=== PATIENT | female | born 1985 | race Caucasian/White ===

== ENCOUNTER 2016-07-26 19:05 | Inpatient (IN) | payer OTHER ==
[~2016-07-26] VITALS: Ht 172.7 cm; Wt 69.9 kg
[2016-07-26] MEDS ORDERED: MOM 30ML SUSPENSION UDC PO PRN (20:30)
[2016-07-26] MEDS ORDERED: MAALOX 30 ML SUSP *UDC PO PRN (20:30)
[2016-07-26] MEDS: chlordiazePOXIDE 25 MG CAP PO SCH (21:00)
[2016-07-26] MEDS ORDERED: ZOLP5TAB PO (21:03)
[2016-07-26] MEDS ORDERED: AMPH30CA PO (21:03)
[2016-07-26] MEDS ORDERED: GRAL600T PO (21:03)
[2016-07-26] MEDS ORDERED: HYDR25T PO (21:03)
--- NOTE | 2016-07-26 21:12 | EDDOCDS ---
Nurse's Notes [facility] Name: Jojo Smith Age: 30 yrs Sex: Female : 1985 Arrival Date: 07/26/2016 Time: 19:05 Bed OBSERVATION Private MD: Diagnosis: Major depressive disorder, recurrent;Suicide attempt;Opioid abuse;Alcohol abuse Presentation: 07/26 19:14 Presenting complaint: Received report at 1330 from [facility] stating that pt has history of js13 heroin, ETOH and cocaine abuse. Pt presented with SI and lacerations to left FA, one of which required 5 sutures to close. Pt has had multiple suicide attempts, multiple detox and rehab stays and has been unsuccessful. Mental Health Triage Level: Level 2: The patient displays active suicidal ideations. Adult Sepsis Screening: The patient does not have new or worsening altered mentation. Suicide/Homicide risk assessment- The patient admits to and/or has been reported to be having suicidal ideations. The patient reports that he/she has a recent or current history of substance abuse. 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 Transition of care: patient was received from [facility]. 19:14 Acuity: NORA Level 3 13 19:14 Method Of Arrival: Ambulance js13 Triage Assessment: 19:20 General: Appears in no apparent distress. HIV screening NA for this visit Offered js13 previously. Neurological: Level of Consciousness is awake, alert, Oriented to person, place, time. Cardiovascular: Rhythm is regular. Respiratory: Airway is patent Respiratory effort is even, unlabored, Breath sounds are clear bilaterally. Derm: Dressed wounds to left FA. [address] to horizontal asymptomatic laceration. Multiple other superficial lacs noted. Multiple scars noted to marya arms, many consistent with IV drug scars. 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 hydroxyzine HCl 25 mg Oral tab 1 tab 3 times per day - PMHx: polysubstance abuse; - PSHx: none; - Family history: Not pertinent. - : The pt / caregiver states he / she is not on anticoagulants. Home medication list is obtained from the patient, Transfer paperwork . - Exposure Risk Screening:: None identified. Screenin:00 Screening information is obtained from the patient. Fall risk: No risks identified. rw1 Assistance ADL's: requires no assistance with activities of daily living. Abuse/DV Screen: The patient / caregiver reports he/she is: not in a situation that causes fear, pain or injury. Nutritional screening: No deficits noted. Advance Directives: Currently, there is no health care proxy. home support is inadequate. Assessment: 19:20 General: see triage assessment. rw1 20:59 General: Appears distressed, uncomfortable, Behavior is anxious, appropriate for age, rw1 cooperative, pleasant, restless. Pain: Location: back, right leg and left leg Pain currently is 9 out of 10 on a pain scale. Neurological: Level of Consciousness is awake, alert, obeys commands, Oriented to person, place, time. Respiratory: Airway is patent Respiratory effort is even, unlabored. Mental Health Eval: 20:24 Status: The patient is not a kosher dietary service supervisor or dependent. [facility]: The patient is not an established patient of [facility]. Referral Information: Evaluation referral is generated by [facility] . The patient was referred for evaluation because PT attempted suicide . Subjective: The patients chief complaint is PT states that she has long hx of alcohol and heroin abuse but that she was utilizing Suboxin for a few years. She had paying out of pocket as the provider in her area would not accept her insurance so PT's states she has been hussing to pay for the script. About 4 months ago she was unable to get the money for a script and she turned back to heroin and alcohol. PT was in [facility] detox 2x in 3 weeks and they arranged for her to go to [facility] rehab and discharged her. On the way to rehab PT was drinking so the rehab turned her away which was upsetting to PT so she overdosed. Originally PT admitted she OD and cut her left forearm to kill herself but now is saying she just wanted to sleep and is a cutter. When asked about her pattern for cutting she states this is the first time except for when she was in [facility] and cut her arm to kill herself. PT tearful throughout interview and is accepting of admission. . Delusions are denied. Patient's mood is anxious, depressed, Hallucinations are denied. Mental Health history: alcohol abuse, anxiety, Bipolar Disorder, depression, abusing crack cocaine. heroin. self -mutilation, sleep disturbance, suicide attempt by OD Mental Health Admissions: Destiny Bryan but PT states she cannot remember when Current Outpatient Mental Health Services: None. Current living environment is The patient currently lives with his / her mother, and mother's . Patient presents to Emergency Department with the following symptoms within the past 2 weeks: alcohol abuse, anxiety, depressed mood, drug abuse, excessive guilt, feelings of helplessness/hopelessness, poor concentration, Patient has mutilated themselves by cutting their left arm sleep disturbance - erratic suicidal ideation with attempt/gesture by pills. Substance abuse: Patient uses daily. Patient uses heroin daily. Patient uses tobacco Frequency daily. Mental status exam: Patients appearance is appropriate, Patient's behavior is cooperative, Speech is normal. Affect is appropriate. Mood is anxious. depressed. Hallucinations are denied. Appetite is erratic Memory is good. Energy level is normal. Content of thought is depressive. pessimistic outlook for her future Thought process is intact. Cognitive level is oriented to person, place, time and situation Patient's insight is fair. Judgement is poor. Rapport with interviewer is good. Suicidal Ideation is denied. Homicidal ideation is denied. Disposition: Medically cleared for disposition by Melvin Hodge DO Psychiatric Consult is performed by phone with Dr Melvin Hodge DO. [facility] Admission Criteria: The patient has had a suicide attempt in the recent past. The patient requires continuous observation and/or control to protect self, others or property. The patient's care requires a multi-modal treatment plan under close supervision and coordination due to the complexity and severity of the patient's symptoms. The patient requires administration and monitoring of psychoactive medications by skilled medical providers due to the side effects of the psychoactive medications or significant dosage adjustments. Legal Status: Patient's legal status will be Emergency admission: . [place] Safe [place] Safe [place] is applicable to this patient. The patient poses a risk to self or other and the Nursing Gym Instructor has been notified. He/She will enter the patient's data. DSM-V Differential Diagnosis: Unspecified Depressive Disorder (F32.9). Awaiting: transfer to [facility]. Vital Signs: 19:28 BP 134 / 95; Pulse 98; Resp 20; Temp 97.6(O); Pulse Ox 100% on R/A; Weight 63.5 kg (R); rw1 Height 5 ft. 8 in. (172.72 cm) (R); Pain 10/10; 21:00 BP 134 / 90; Pulse 96; Resp 18; Temp 96.8(O); Pulse Ox 100% on R/A; Pain 9/10; rw1 19:28 Body Mass Index 21.29 (63.50 kg, 172.72 cm) rw1 19:28 c/o back and leg pain from Herion withdrawl rw1 Vitals: 19:28 Log In Time N/A - ambulance arrival. rw1 ED Course: 19:07 Patient visited by Cornel Cox, Installation And Service Technician. ml3 19:07 Patient moved to Waiting ml3 19:07 Patient moved to [facility] ml3 19:08 Melvin Hodge DO is Attending Physician. cs11 19:09 Patient visited by Melvin Hodge DO. cs11 19:17 Triage Initiated js13 19:24 Patient visited by Michelle Donis RN. js13 19:27 Saman Bishop LPN is Primary Nurse. rw1 19:28 Patient visited by Mitchell Jim. tr 19:35 Patient moved to OBSERVATION cs11 19:58 Patient visited by Mitchell Jim. tr 20:25 Pipe Jacinto MD is Hospitalizing Provider. cs11 20:44 [facility] Legal paperwork was scanned into [employer] and attached to record. ms 20:57 Patient visited by Mitchell Jim. tr 21:00 The patient / caregiver is instructed regarding the plan of care and ED course. rw1 21:00 No IV's were initiated during this patient's visit. No procedures done that require rw1 assistance. 21:08 Patient name changed from Jojo\S\J\S\Whitewilson\S\ to Jojo\S\J\S\White. EDMS Attachments: 20:44 E Legal paperwork ms Order Results: There are currently no results for this order. Outcome: 20:26 Decision to Hospitalize by Provider. cs11 21:00 Discharge Assessment: Patient awake, alert and oriented x 3. No cognitive and/or rw1 functional deficits noted. Patient verbalized understanding of disposition instructions. patient administered narcotics - no. The following High Risk Discharge criteria are identified: Admitted to Psych accompanied by tech, via wheelchair, with chart. Condition: stable. No special radiology studies were completed. Property removed, inventory done, secured in belongings bag- given to [facility] staff. 21:10 Patient left the ED. rw1 Signatures: Dispatcher [employer] EDMary Hyde, ES SUGGS ms Diandra, Cornel Chen, Installation And Service Technician Unit ml3 Saman Bishop LPN LPN rw1 Lyn Grayson PSA PSA jfb Sullivan, Jennifer,RN RN js13 Melvin Hodge, DO cs11 MTDD
--- NOTE | 2016-07-26 21:12 | EDDOCDS ---
Physician Documentation [facility] Name: Jojo Smith Age: 30 yrs Sex: Female : 1985 Arrival Date: 07/26/2016 Time: 19:05 Bed OBSERVATION Private MD: Disposition: 07/26/16 20:26 Hospitalization ordered by Pipe Jacinto for Inpatient Admission. Preliminary diagnosis are Major depressive disorder, recurrent, Suicide attempt, Opioid abuse, Alcohol abuse. - Bed requested for Admit. - Status is Inpatient Admission. rw1 - Condition is Stable. - Problem is chronic. - Symptoms have improved. Historical: - Allergies: Haldol; - Home Meds: 1. hydroxyzine HCl 25 mg Oral tab 1 tab 3 times per day - PMHx: polysubstance abuse; - PSHx: none; - Family history: Not pertinent. - : The pt / caregiver states he / she is not on anticoagulants. Home medication list is obtained from the patient, Transfer paperwork . - Exposure Risk Screening:: None identified. 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 8 in. (172.72 cm) (R); Pain 10/10; 21:00 BP 134 / 90; Pulse 96; Resp 18; Temp 96.8(O); Pulse Ox 100% on R/A; Pain 9/10; rw1 19:28 Body Mass Index 21.29 (63.50 kg, 172.72 cm) rw1 19:28 c/o back and leg pain from Herion withdrawl rw1 MDM: 20:27 BED REQUEST+ADM ordered. EDMS 20:37 Admit to [facility]: ordered. EDMS 20:37 REGULAR DIET ordered. EDMS 20:44 [facility] Legal paperwork was scanned into [employer] and attached to record. ms 21:05 Financial registration complete. sharon Signatures: Dispatcher [employer] EDMS Mary Bonner, PSA PSA ms Saman Bishop,VP MARKETING VP MARKETING rw1 Michelle Donis,RN RN js13 Melvin Hodge DO DO cs11 Kim, Sidra gjb MTDD
[2016-07-26 21:35] VITALS: BP_SYST 135; BP_SYST 136; BP_DIAS 85
[2016-07-26] MEDS: METHADONE 10 MG TAB (S0109) PO SCH (22:13)
[2016-07-26] MEDS ORDERED: chlordiazePOXIDE 25 MG CAP PO ONE (22:15)
[2016-07-26] MEDS: traZODone 50 MG TAB PO PRN (23:25)
[2016-07-27 06:00] VITALS: BP 84/54
[2016-07-27] MEDS: METHADONE 10 MG TAB (S0109) PO SCH ×2 (08:09→20:04)
[2016-07-27] MEDS: chlordiazePOXIDE 25 MG CAP PO SCH ×3 (08:09→20:03)
[2016-07-27] MEDS: MULTIVITAMINS/MINERALS THERAP 1 TAB PO SCH (08:10)
[2016-07-27] MEDS: FOLIC ACID 1 MG TAB PO SCH (08:10)
[2016-07-27] MEDS: THIAMINE 100 MG TAB PO SCH (08:10)
[2016-07-27] MEDS: NICOTINE 21MG/24HR 1 EA TRANSDERMAL TD SCH (10:19)
--- NOTE | 2016-07-27 16:56 | HPE ---
DATE OF ADMISSION: 07/26/2016 LEGAL STATUS AT ADMISSION: 939 legal status. CHIEF COMPLAINT: "I'm very depressed and I overdosed. HISTORY OF PRESENT ILLNESS : 30-year-old female with history of depression, anxiety, panic disorder and opiate dependency admitted to our unit on a 939 legal status. According to the records, the patient was transferred from [facility] after she attempted suicide. It is reported that she has a long history of alcohol and heroin and stated that she was on Suboxone for a few years, but she could not afford the treatment and relapsed to use heroin and alcohol four months ago. Also, it is reported in the chart that she was supposed to be admitted to [facility]; but on the way to the rehabilitation, the patient used alcohol and she was not accepted. The patient admitted she overdosed and cut her left forearm and its reported that she was tearful throughout the interview, was very anxious and depressed. She admits that she has been using heroin IV on a daily basis, which is the drug of choice, but also alcohol every other day; and for the last couple of months, crack cocaine. The patient reports that she has not been sharing needles and that she was tested for human immunodeficiency virus (HIV) and hepatitis C at the [facility] before admission to our unit. During the interview, the patient is somewhat medication seeking. She is very interested on all the medication she is on and what is the plan as far as the pharmacological treatment. She states that she has been diagnosed of attention deficit hyperactive disorder (ADHD) since 6 years of age, but she could not come up with a name of the psychiatrist that she has followed lately told her that we were going to pull the records and review her history and records. There is no evidence of psychotic symptoms, no auditory or visual hallucinations or delusions during the interview. The patient is anxious and somewhat labile. The patient reports intermittent suicidal thoughts, but is able to contract for safety in our unit. PAST PSYCHIATRIC HISTORY: The patient reports she was diagnosed of attention deficit hyperactive disorder (ADHD) when she was 6 years of age. Will need to review the records. The patient also reports being diagnosed of anxiety, panic attacks and agoraphobia. PAST MEDICAL HISTORY: The patient reports that she has been diagnosed of alcohol-related seizures. FAMILY HISTORY: The patient reports her father had problems with drugs and alcohol and other psychiatric problems, but she is not sure about the specific diagnosis. SUBSTANCE ABUSE HISTORY: The patient reports that she was using pain killers before she got into the Suboxone program and is using heroin IV for the last four months. She also admits using alcohol every other day and crack cocaine for the last two months. REVIEW OF SYSTEMS: CONSTITUTIONAL: No weight loss, fever, chills, weakness or fatigue. HEENT: No visual loss, blurry vision, double vision or yellow sclerae. No hearing loss, nasal congestion, running nose or sore throat. SKIN: No rash or itching. CARDIOVASCULAR: No chest pain, chest pressure, chest discomfort, palpitations or edema. RESPIRATORY: No shortness of breath, cough or sputum. GASTROINTESTINAL (GI): No anorexia, nausea, vomiting or diarrhea. No abdominal pain or blood. GENITOURINARY (): No burning or pain on urination. NEUROLOGIC: No headache, dizziness, syncope, paralysis, ataxia, numbness or tingling. MUSCULOSKELETAL: No muscle back pain, joint pain or stiffness. HEMATOLOGIC: No anemia, bleeding or bruising. LYMPHATICS: No history of a splenectomy. ENDOCRINOLOGIC: No report of sweating, cold or heat intolerance. No polyuria or polydipsia. ALLERGIES: No history of asthma, hives, eczema or rhinitis. PHYSICAL EXAMINATION: As per physician assistant professor of biology. LABORATORY: No labs have been drawn during this admission since the patient was fully worked up at [facility]. MENTAL STATUS EXAMINATION: The patient is dressed in [facility]. The patient is cooperative. Her speech is somewhat pressured, has fair eye contact. Mood is anxious and depressed. Affect is labile. The patient is oriented to time, place, person and situation. Maintains attention and concentration fairly. Instant recall, recent and remote memory are intact. Thought process coherent, logical and goal directed. The patient does not have auditory or visual hallucination. The patient does not have paranoid, persecutory, somatic ideas or muslim delusion. The patient is reporting intermittent suicidal thoughts, no homicidal ideation. Judgment and insight are poor as far as her chemical dependency. DIAGNOSIS: AXIS I: Opiate dependency. Substance induced mood disorder. Rule out major depressive disorder versus adjustment disorder with depressed and anxious mood. Alcohol abuse. Crack cocaine abuse. AXIS II: Deferred. AXIS III: Status post overdose on alcohol and heroin. PLAN: The patient was admitted on a 939 legal status. Complete history was obtained. With her permission, family will be contacted and data base will be expanded. Her medication regimen will be reviewed and changed accordingly. She will be provided with protected environment. She will be treated with individual, group and milieu therapy. She will also receive supportive psychoeducation. Discharge planning will commence immediately. Length of stay will be between 5 and 7 days. Outpatient followup will be strongly recommended. Treatment and plan will focus initially on depression, risk for suicide and substance abuse.
[2016-07-27 18:00] VITALS: BP 111/68
[2016-07-27 20:08] VITALS: BP 114/70
[2016-07-27] MEDS: ONDANSETRON 4 MG TAB (S0181) PO PRN (21:06)
[2016-07-27] MEDS: traZODone 50 MG TAB PO PRN (21:06)
[2016-07-27] MEDS ORDERED: THIAMINE 100 MG TAB PO ONE (22:00)
[2016-07-28 06:33] VITALS: BP 94/55
[2016-07-28] MEDS: chlordiazePOXIDE 25 MG CAP PO SCH ×3 (08:05→20:09)
[2016-07-28] MEDS: ONDANSETRON 4 MG TAB (S0181) PO PRN (08:05)
[2016-07-28] MEDS: NICOTINE 21MG/24HR 1 EA TRANSDERMAL TD SCH (08:05)
[2016-07-28] MEDS: THIAMINE 100 MG TAB PO SCH (08:06)
[2016-07-28] MEDS: ACETAMINOPHEN TAB 650MG DOSE (2X325MG) PO PRN ×2 (08:06→14:38)
[2016-07-28] MEDS: METHADONE 10 MG TAB (S0109) PO SCH ×2 (08:06→20:10)
[2016-07-28] MEDS: FOLIC ACID 1 MG TAB PO SCH (08:07)
[2016-07-28] MEDS: MULTIVITAMINS/MINERALS THERAP 1 TAB PO SCH (08:07)
--- NOTE | 2016-07-28 09:09 | HPE ---
DATE OF ADMISSION: 07/26/2016 Please refer to psychiatric history and evaluation for further details on this admission. This examination and history is intended for medical issues which may need treatment, followup or consult on this 30-year-old female who was transferred from [facility] after being stabilized from an overdose of her hydroxyzine, heroine and alcohol. She had been in [facility] detox. She was discharged to go to [facility] in [place]. She drank on the way. They would not accept her and admit her when she got there. She came back home, took the overdose and cut her left forearm. She was brought to [facility] where she was stabilized. She has had sutures and then was ultimately transferred here. She is . She lives with her mother. She has three children that live with their father. ETOH daily. Smokes three packs of cigarettes per day. Recreational drug use, polysubstance abuse to include IV heroine, cocaine, opiates. PAST MEDICAL HISTORY: Polysubstance abuse. Bipolar. Attention deficit hyperactivity disorder. PAST SURGICAL HISTORY: Three sections. HOME MEDICATIONS: - hydroxyzine 25 mg by mouth three times daily as needed anxiety - Ambien 5 mg by mouth daily at bedtime - Adderall 30 mg by mouth twice daily - gabapentin 600 mg by mouth three times daily At [facility], toxicology screen was positive for cocaine, opiates and alcohol. Ten systems review was done. Patient was complaining of some anxiety, nausea, symptoms of withdrawal. Otherwise no specific complaints. PRIMARY CARE PROVIDER: She will need to find one for discharge. ALLERGIES: HALOPERIDOL. PHYSICAL EXAMINATION: 30-year-old cooperative female in no acute distress. Height 68 inches, weight 65.8 kg. BMI 22.1. Blood pressure 114/70, pulse 76, respirations 16, temperature 97.2. The patient is alert and oriented times three. Pupils equal and reactive to light. Extraocular movements intact. Cornea and sclera clear. Conjunctiva normal. No facial asymmetry. Pharynx, tongue and gums pink and moist. Tongue is midline. Neck is supple, without lymphadenopathy. No thyromegaly. No goiter. Carotids 2+ without bruit. Chest clear to auscultation, without wheeze or retraction. Heart is regular. Abdomen benign. Bowel sounds positive. Genitourinary ()/Rectal: Not done. Extremities show equal strength, full range of motion. No cyanosis, clubbing or edema. She has several superficial lacerations in her forearm. No redness or drainage. She has one sutured laceration with five sutures intact, well approximated, no redness or drainage. Hand disease education specialist are equal. Peripheral pulses equal and palpable bilaterally. Gait is steady. IMPRESSION/PLAN: Psychiatric plan per psychiatry. Monitor for withdrawal. Patient will need suture removal in approximately 7 days. Monitor for infection. MTDD
[2016-07-28] MEDS: IBUPROFEN 600 MG TAB PO SCH ×2 (17:06→23:08)
[2016-07-28 18:00] VITALS: BP_SYST 118; BP_SYST 132; BP_DIAS 75; BP_DIAS 77
--- NOTE | 2016-07-28 18:42 | ECGEPIP ---
Stationary ECG Study [facility] Test Date: 2016-07-28 Pat Name: KE ALFONSO Department: Room: [place] [address] Gender: F Registered Radiation Therapist: JODIE : 1985 Requested By: Juany Salazar [facility] Order Number: [id number] Reading MD: Shawn Gan Measurements Intervals [place] Rate: 72 P: 51 VA: 148 QRS: 46 QRSD: 91 T: 41 QT: 385 QTc: 422 Interpretive Statements SINUS RHYTHM NO PRIOR TRACING IN THE SYSTEM Electronically Signed On 07-28-2016 18:42:28 EST by Shawn Gan
[2016-07-28 20:00] VITALS: BP 90/56
[2016-07-28] MEDS: QUEtiapine FUMARATE 100 MG TAB PO SCH (21:00)
--- NOTE | 2016-07-28 22:11 | EDDOCDS ---
Physician Documentation [facility] Name: Jojo Smith Age: 30 yrs Sex: Female : 1985 Arrival Date: 07/26/2016 Time: 19:05 Bed OBSERVATION Private MD: Disposition: 07/26/16 20:26 Hospitalization ordered by Pipe Jacinto for Inpatient Admission. Preliminary diagnosis are Major depressive disorder, recurrent, Suicide attempt, Opioid abuse, Alcohol abuse. - Bed requested for Admit. - Status is Inpatient Admission. rw1 - Condition is Stable. - Problem is chronic. - Symptoms have improved. Historical: - Allergies: Haldol; - Home Meds: 1. hydroxyzine HCl 25 mg Oral tab 1 tab 3 times per day - PMHx: polysubstance abuse; - PSHx: none; - Family history: Not pertinent. - : The pt / caregiver states he / she is not on anticoagulants. Home medication list is obtained from the patient, Transfer paperwork . - Exposure Risk Screening:: None identified. [employer] FIELD COORDINATOR: 07/26 19:28 LMP 07/12/2016 rw1 Vital Signs: 19:28 BP 134 / 95; Pulse 98; Resp 20; Temp 97.6(O); Pulse Ox 100% on R/A; Weight 63.5 kg / rw1 139.99 lbs (R); Height 5 ft. 8 in. (172.72 cm) (R); Pain 10/10; 21:00 BP 134 / 90; Pulse 96; Resp 18; Temp 96.8(O); Pulse Ox 100% on R/A; Pain 9/10; rw1 19:28 Body Mass Index 21.29 (63.50 kg, 172.72 cm) rw1 19:28 c/o back and leg pain from Herion withdrawl rw1 MDM: 20:27 BED REQUEST+ADM ordered. EDMS 20:37 Admit to [facility]: ordered. EDMS 20:37 REGULAR DIET ordered. EDMS 20:44 [facility] Legal paperwork was scanned into [employer] and attached to record. ms 21:05 Financial registration complete. b 21:12 [facility] Payment Agreement was scanned into [employer] and attached to record. b 07/28 09:52 T-Sheet-- Draft Copy was scanned into [employer] and attached to record. gb Signatures: Dispatcher [employer] EDMS Mary Bonner, PSA PSA ms Maddie, Tatiana, Reg Reg gb Edna,Saman,DISINTEGRATOR DISINTEGRATOR rw1 Michelle Donis,RN RN js13 Melvin Hodge, DO DO cs11 Sidra Kim The chart was reviewed and I authenticate all verbal orders and agree with the evaluation and treatment provided.Attachments: 21:12 [facility] Payment Agreement gjtwin 07/28 09:52 T-Sheet-- Draft Copy gb Chart Complete MTDD
--- NOTE | 2016-07-28 22:11 | EDDOCDS ---
Physician Documentation [facility] Name: Jojo Smith Age: 30 yrs Sex: Female : 1985 Arrival Date: 07/26/2016 Time: 19:05 Bed OBSERVATION Private MD: Disposition: 07/26/16 20:26 Hospitalization ordered by Pipe Jacinto for Inpatient Admission. Preliminary diagnosis are Major depressive disorder, recurrent, Suicide attempt, Opioid abuse, Alcohol abuse. - Bed requested for Admit. - Status is Inpatient Admission. rw1 - Condition is Stable. - Problem is chronic. - Symptoms have improved. Historical: - Allergies: Haldol; - Home Meds: 1. hydroxyzine HCl 25 mg Oral tab 1 tab 3 times per day - PMHx: polysubstance abuse; - PSHx: none; - Family history: Not pertinent. - : The pt / caregiver states he / she is not on anticoagulants. Home medication list is obtained from the patient, Transfer paperwork . - Exposure Risk Screening:: None identified. 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 8 in. (172.72 cm) (R); Pain 10/10; 21:00 BP 134 / 90; Pulse 96; Resp 18; Temp 96.8(O); Pulse Ox 100% on R/A; Pain 9/10; rw1 19:28 Body Mass Index 21.29 (63.50 kg, 172.72 cm) rw1 19:28 c/o back and leg pain from Herion withdrawl rw1 MDM: 20:27 BED REQUEST+ADM ordered. EDMS 20:37 Admit to [facility]: ordered. EDMS 20:37 REGULAR DIET ordered. EDMS 20:44 [facility] Legal paperwork was scanned into [employer] and attached to record. ms 21:05 Financial registration complete. b 21:12 [facility] Payment Agreement was scanned into [employer] and attached to record. b 07/28 09:52 T-Sheet-- Draft Copy was scanned into [employer] and attached to record. gb Signatures: Dispatcher [employer] EDMS Mary Bonner, PSA PSA ms Maddie, Tatiana, Reg Reg gb Edna,Saman,QUALITY NURSE QUALITY NURSE rw1 Michelle Donis,RN RN js13 Melvin Hodge, DO DO cs11 Sidra Kim The chart was reviewed and I authenticate all verbal orders and agree with the evaluation and treatment provided.Attachments: 21:12 [facility] Payment Agreement gjtwin 07/28 09:52 T-Sheet-- Draft Copy gb Chart Complete MTDD
--- NOTE | 2016-07-28 22:11 | EDDOCDS ---
Nurse's Notes [facility] Name: Jojo Smith Age: 30 yrs Sex: Female : 1985 Arrival Date: 07/26/2016 Time: 19:05 Bed OBSERVATION Private MD: Diagnosis: Major depressive disorder, recurrent;Suicide attempt;Opioid abuse;Alcohol abuse Presentation: 07/26 19:14 Presenting complaint: Received report at 1330 from [facility] stating that pt has history of js13 heroin, ETOH and cocaine abuse. Pt presented with SI and lacerations to left FA, one of which required 5 sutures to close. Pt has had multiple suicide attempts, multiple detox and rehab stays and has been unsuccessful. Mental Health Triage Level: Level 2: The patient displays active suicidal ideations. Adult Sepsis Screening: The patient does not have new or worsening altered mentation. Suicide/Homicide risk assessment- The patient admits to and/or has been reported to be having suicidal ideations. The patient reports that he/she has a recent or current history of substance abuse. Status: Patient is not a home restoration service cleaner or dependent. Transition of care: patient was received from [facility]. 19:14 Acuity: NORA Level 3 13 19:14 Method Of Arrival: Ambulance js13 Triage Assessment: 19:20 General: Appears in no apparent distress. HIV screening NA for this visit Offered js13 previously. Neurological: Level of Consciousness is awake, alert, Oriented to person, place, time. Cardiovascular: Rhythm is regular. Respiratory: Airway is patent Respiratory effort is even, unlabored, Breath sounds are clear bilaterally. Derm: Dressed wounds to left FA. [address] to horizontal asymptomatic laceration. Multiple other superficial lacs noted. Multiple scars noted to marya arms, many consistent with IV drug scars. 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 hydroxyzine HCl 25 mg Oral tab 1 tab 3 times per day - PMHx: polysubstance abuse; - PSHx: none; - Family history: Not pertinent. - : The pt / caregiver states he / she is not on anticoagulants. Home medication list is obtained from the patient, Transfer paperwork . - Exposure Risk Screening:: None identified. Screenin:00 Screening information is obtained from the patient. Fall risk: No risks identified. rw1 Assistance ADL's: requires no assistance with activities of daily living. Abuse/DV Screen: The patient / caregiver reports he/she is: not in a situation that causes fear, pain or injury. Nutritional screening: No deficits noted. Advance Directives: Currently, there is no health care proxy. home support is inadequate. Assessment: 19:20 General: see triage assessment. rw1 20:59 General: Appears distressed, uncomfortable, Behavior is anxious, appropriate for age, rw1 cooperative, pleasant, restless. Pain: Location: back, right leg and left leg Pain currently is 9 out of 10 on a pain scale. Neurological: Level of Consciousness is awake, alert, obeys commands, Oriented to person, place, time. Respiratory: Airway is patent Respiratory effort is even, unlabored. Mental Health Eval: 20:24 Status: The patient is not a home restoration service cleaner or dependent. [facility]: The patient is not an established patient of [facility]. Referral Information: Evaluation referral is generated by [facility] . The patient was referred for evaluation because PT attempted suicide . Subjective: The patients chief complaint is PT states that she has long hx of alcohol and heroin abuse but that she was utilizing Suboxin for a few years. She had paying out of pocket as the provider in her area would not accept her insurance so PT's states she has been hussing to pay for the script. About 4 months ago she was unable to get the money for a script and she turned back to heroin and alcohol. PT was in [facility] detox 2x in 3 weeks and they arranged for her to [place] [facility] [place] and discharged her. On the way to rehab PT was drinking so the rehab turned her away which was upsetting to PT so she overdosed. Originally PT admitted she OD and cut her left forearm to kill herself but now is saying she just wanted to sleep and is a cutter. When asked about her pattern for cutting she states this is the first time except for when she was in correction and cut her arm to kill herself. PT tearful throughout interview and is accepting of admission. . Delusions are denied. Patient's mood is anxious, depressed, Hallucinations are denied. Mental Health history: alcohol abuse, anxiety, Bipolar Disorder, depression, abusing crack cocaine. heroin. self -mutilation, sleep disturbance, suicide attempt by OD Mental Health Admissions: Destiny Bryan but PT states she cannot remember when Current Outpatient Mental Health Services: None. Current living environment is The patient currently lives with his / her mother, and mother's . Patient presents to Emergency Department with the following symptoms within the past 2 weeks: alcohol abuse, anxiety, depressed mood, drug abuse, excessive guilt, feelings of helplessness/hopelessness, poor concentration, Patient has mutilated themselves by cutting their left arm sleep disturbance - erratic suicidal ideation with attempt/gesture by pills. Substance abuse: Patient uses daily. Patient uses heroin daily. Patient uses tobacco Frequency daily. Mental status exam: Patients appearance is appropriate, Patient's behavior is cooperative, Speech is normal. Affect is appropriate. Mood is anxious. depressed. Hallucinations are denied. Appetite is erratic Memory is good. Energy level is normal. Content of thought is depressive. pessimistic outlook for her future Thought process is intact. Cognitive level is oriented to person, place, time and situation Patient's insight is fair. Judgement is poor. Rapport with interviewer is good. Suicidal Ideation is denied. Homicidal ideation is denied. Disposition: Medically cleared for disposition by Melvin Hodge DO Psychiatric Consult is performed by phone with Dr Melvin Hodge DO. [facility] Admission Criteria: The patient has had a suicide attempt in the recent past. The patient requires continuous observation and/or control to protect self, others or property. The patient's care requires a multi-modal treatment plan under close supervision and coordination due to the complexity and severity of the patient's symptoms. The patient requires administration and monitoring of psychoactive medications by skilled medical providers due to the side effects of the psychoactive medications or significant dosage adjustments. Legal Status: Patient's legal status will be Emergency admission: 39. [place] Safe Act: [place] Safe Act is applicable to this patient. The patient poses a risk to self or other and the Nursing Charter Boat Operator has been notified. He/She will enter the patient's data. DSM-V Differential Diagnosis: Unspecified Depressive Disorder (F32.9). Awaiting: transfer to [facility]. 07/27 03:32 Insurance Pre-Certification: Attempted to contact with Kenny vidal. Recorded message abran states they will transfer the call to the after hours line and then the line stays open but there is no connection. . 07/28 13:41 Narrative: Spoke to Kyle Rita Cox. Reference # [id number]. Awaiting a call back ml4 from a clinician. 14:31 Narrative: Spoke to Suzanne Peña Cox who has approved pt for 5 days(07/26-07/30) with ml4 review due on 07/30/16 with Suzanne Pompa, ext [phone]. Auth # [id number]. Vital Signs: 07/26 19:28 BP 134 / 95; Pulse 98; Resp 20; Temp 97.6(O); Pulse Ox 100% on R/A; Weight 63.5 kg (R); rw1 Height 5 ft. 8 in. (172.72 cm) (R); Pain 10/10; 21:00 BP 134 / 90; Pulse 96; Resp 18; Temp 96.8(O); Pulse Ox 100% on R/A; Pain 9/10; rw1 19:28 Body Mass Index 21.29 (63.50 kg, 172.72 cm) rw1 19:28 c/o back and leg pain from Herion withdrawl rw1 Vitals: 19:28 Log In Time N/A - ambulance arrival. rw1 ED Course: 19:07 Patient visited by Cornel Cox, Classification Control Clerk. ml3 19:07 Patient moved to Waiting ml3 19:07 Patient moved to [facility] ml3 19:08 Melvin Hodge DO is Attending Physician. cs11 19:09 Patient visited by Melvin Hodge DO. cs11 19:17 Triage Initiated js13 19:24 Patient visited by Michelle Donis RN. js13 19:27 Saman Bishop LPN is Primary Nurse. rw1 19:28 Patient visited by Mitchell Jim. tr 19:35 Patient moved to OBSERVATION cs11 19:58 Patient visited by Mitchell Jim. tr 20:25 Pipe Jacinto MD is Hospitalizing Provider. cs11 20:44 E Legal paperwork was scanned into [employer] and attached to record. ms 20:57 Patient visited by Mitchell Jim. tr 21:00 The patient / caregiver is instructed regarding the plan of care and ED course. rw1 21:00 No IV's were initiated during this patient's visit. No procedures done that require rw1 assistance. 21:08 Patient name changed from Jojo\S\J\S\Whitewilson\S\ to Jojo\S\J\S\White. EDMS 21:12 PENDING SALE TO [facility] Payment Agreement was scanned into [employer] and attached to record. sharon 07/28 09:52 T-Sheet-- Draft Copy was scanned into [employer] and attached to record. gb Attachments: 07/26 20:44 [facility] Legal paperwork ms Order Results: There are currently no results for this order. Outcome: 07/26 20:26 Decision to Hospitalize by Provider. cs11 21:00 Discharge Assessment: Patient awake, alert and oriented x 3. No cognitive and/or rw1 functional deficits noted. Patient verbalized understanding of disposition instructions. patient administered narcotics - no. The following High Risk Discharge criteria are identified: Admitted to Psych accompanied by tech, via wheelchair, with chart. Condition: stable. No special radiology studies were completed. Property removed, inventory done, secured in belongings bag- given to [facility] staff. 21:10 Patient left the ED. rw1 Signatures: Dispatcher [employer] EDMS Ha , PSA PSA ms Maddie, Tatiana, Reg Reg gb Jim, Mitchell tr Kenny, [facility] Medcenter[facility]iliana, Classification Control Clerk Unit ml3 Saman Bishop,ENGINEERING OPERATOR ENGINEERING OPERATOR rw1 Niecy Waller, PSA PSA ml4 Lyn Grayson, PSA PSA Michelle Espinal,RN RN js13 Melvin Hodge, DO cs11 Sidra Kim Chart Complete MTDD
[2016-07-28] MEDS: traZODone 50 MG TAB PO PRN (22:55)
--- NOTE | 2016-07-29 00:14 | IPNPDOC ---
[facility] Progress Note Progress Note DATE OF SERVICE: 07/28/16 SUBJECTIVE: Patient reports improving depression. Patient also reports symptoms of opioid w/d and alcohol w/d minimal on current regimen. Patient aware Methadone and Librium are being tapered to off in preparation for [facility] inpatient rehab admission. Patient reporting worsening ADHD symptoms that she feels will interfere with her progressing through rehab lectures/ counseling. Patient also reporting dental pain, asking for anbesol. Patient currently denies SI/HI and AH/VH. No med s/e reported. Vitals: wnl MENTAL STATUS EXAMINATION: The patient is dressed in hospital clothing, in NAD. speech: spontaneous, RRR. Mood is depressed and anxious. Affect is anxious. No evidence of delusions or hallucinations. Short and watermelon inspector memory are intact. Patient is alert and oriented. Associations are intact. Thinking is linear and GD. Thought content is focused on meds. The patient is denying suicidal or homicidal ideations during the interview. Insight and judgment is limited. ASSESSMENT: 1. Opioid use d/o severe 2. Cocaine use d/o severe 3. Depressive d/o, unspecified 4. ADHD Plan: -Continue taper of Methadone and Librium. -Re-start Adderall at 30mg po BID for ADHD symptoms. -Determine if Adderall Rx allowed at [facility] program. -Start Seroquel 100mg po qhs for anxiety/insomnia. -Continue medical management, individual and group therapy. Vital Signs/I&O Vital Signs Date Time Temp Pulse Resp B/P Pulse Ox O2 Delivery O2 Flow Rate FiO2 07/28/16 20:10 82 16 07/28/16 18:00 97.6 118/75 07/26/16 21:35 100 Room Air Current Medications Current Medications Acetaminophen (Tylenol) 650 mg Q6HP PRN PO HEADACHE or DISCOMFORT Last administered on 07/28/16 14:38; Start 07/26/16 at 20:30; Stop 08/25/16 at 20:29 Al Hydrox/Mg Hydrox/Simethicone (Mylanta) 30 ml Q4HP PRN PO HEARTBURN/ INDIGESTION; Start 07/26/16 at 20:30; Stop 08/25/16 at 20:29 Chlordiazepoxide (Librium) 25 mg TID PO Last administered on 07/28/16 20:09; Start 07/26/16 at 21:00; Stop 08/02/16 at 20:59 Folic Acid (Folic Acid) 1 mg DAILY PO ; Start 07/27/16 at 09:00; Stop 08/26/16 at 08:59 Home Med (Med Rec Complete!) ASDIRECTED XX ; Start 07/26/16 at 21:15; Stop at 21:35; Status DC Ibuprofen (Motrin, Advil) 600 mg Q6H PO Last administered on 07/28/16 23:08; Start 07/28/16 at 18:00; Stop 08/27/16 at 17:59 Magnesium Hydroxide (Milk Of Magnesia) 30 ml DAILYPRN PRN PO CONSTIPATION; Start 07/26/16 at 20:30; Stop 08/25/16 at 20:29 Methadone HCl (Dolophine) 10 mg QAM PO Last administered on 07/28/16 08:06; Start 07/28/16 at 09:00; Stop 08/04/16 at 08:59 Methadone HCl (Dolophine) 20 mg BID PO Last administered on 07/27/16 08:09; Start 07/26/16 at 21:00; Stop 07/27/16 at 09:54; Status DC Methadone HCl (Dolophine) 20 mg QHS PO Last administered on 07/28/16 20:10; Start 07/27/16 at 21:00; Stop 08/03/16 at 20:59 Multivitamins (Theragram-M) 1 tab DAILY PO ; Start 07/27/16 at 09:00; Stop 08/26 at 08:59 Nicotine (Nicoderm Cq 21mg) 1 patch DAILY TD Last administered on 07/28/16 08: 05; Start 07/27/16 at 09:00; Stop 08/26/16 at 08:59 Ondansetron HCl (Zofran) 4 mg Q6HP PRN PO NAUSEA OR VOMITING Last administered on 07/28/16 08:05; Start 07/26/16 at 20:30; Stop 08/25/16 at 20:29 Thiamine HCl (Thiamine HCl) 100 mg DAILY PO ; Start 07/27/16 at 09:00; Stop at 08:59 Trazodone HCl (Desyrel) 100 mg QHSP PRN PO INSOMNIA Last administered on t 22:55; Start 07/26/16 at 20:30; Stop 08/25/16 at 20:29 Allergies Coded Allergies: Haloperidol (Unverified Allergy, Unknown, 07/26/16) RADHA ALFONSO MD Jul 29, 2016 00:13
[2016-07-29 06:24] VITALS: BP 108/58
[2016-07-29] MEDS: IBUPROFEN 600 MG TAB PO SCH ×4 (06:42→23:07)
[2016-07-29] MEDS: chlordiazePOXIDE 25 MG CAP PO SCH ×3 (08:08→20:35)
[2016-07-29] MEDS: METHADONE 10 MG TAB (S0109) PO SCH (08:08)
[2016-07-29] MEDS: NICOTINE 21MG/24HR 1 EA TRANSDERMAL TD SCH (08:09)
[2016-07-29] MEDS: MULTIVITAMINS/MINERALS THERAP 1 TAB PO SCH (08:10)
[2016-07-29] MEDS: FOLIC ACID 1 MG TAB PO SCH (08:10)
[2016-07-29] MEDS: THIAMINE 100 MG TAB PO SCH (08:10)
[2016-07-29] MEDS: ADDERALL 5 MG TAB PO SCH ×2 (09:30→14:08)
[2016-07-29 12:22] VITALS: BP 98/58
[2016-07-29 18:00] VITALS: BP 108/64
--- NOTE | 2016-07-29 18:50 | IPNPDOC ---
[facility] Progress Note Progress Note DATE: 07/29/16 HISTORY: Political Anthropologist met with patient today on inpatient unit to assess treatment progress. Patient indicates she has been attending groups, and has been visible in milieu. Patient reports improving symptoms of anxiety and depression, reports current anxiety level of 6/10, denies symptoms of depression, denies suicidal and homicidal ideation, denies urge to engage in self-injurious behavior, denies audiovisual hallucinations. Patient indicates she last cut her forearm prior to hospital admission, denies urge since being in hospital. Patient reports improved sleep with Seroquel, denies medication side effects. Patient was prescribed Adderall 30 mg at 0900 and 1400 by provider who saw her yesterday, indicates she cannot function without medication, states she's been taking medication since age 6. Political Anthropologist informed patient that attempt is being made to verify and rehabilitation will take her while taking Adderall at which point patient becomes tearful and states she fears she will "crash from not having Adderall." Patient states she feels "pretty good" on current opioid withdrawal regimen, is aware of and in agreement with Librium and methadone taper and informs song writer she wants to be discharged to the [facility] in [place], indicates she wants to go directly from inpatient treatment. Patient indicates sleep and appetite are good, denies challenges with concentration and focus when taking Adderall, denies problems with energy level. Addendum: Due to not finding med reconciliation in chart and not being able to locate patient's prescribing history in [employer], song writer made call to [facility] in [place] and spoke to pharmacist who verified that patient has been prescribed Adderall 30 mg twice a day by Jw Young at the [facility]. VITAL SIGNS: Please see below. NEW TEST RESULTS: EKG dated 07/28/16 on admission SINUS RHYTHM NO PRIOR TRACING IN THE SYSTEM. Hard copy labs received from referring hospital were reviewed indicating low carbon dioxide, Hgb, HCT, MCV, MCH, lymphocytes, monocytes, carbon dioxide, creatinine, glucose (72), AST, total protein, and albumin. Elevated RDW, neutrophils, basophils, chloride, and anion gap. UDS on admission to [facility] was positive for opiates and cocaine and ethanol. HCG pending. CURRENT MEDICATIONS: See below. MENTAL STATUS EXAMINATION: Patient is a 30-year old female, who is pleasant, cooperative, mildly disheveled , dressed in personal clothing, appears stated age, makes good eye contact. Speech: Is of regular rate, rhythm, volume, coherent Thought processes: Clear, goal-directed, somewhat fixated on Adderall Rate of thoughts: Within normal limits. Thought content: Rational, generally logical.. Abstract reasoning: Appears within normal limits. Description of associations: Intact. Description of abnormal or psychotic thoughts: Denies hallucinations, Delusions , Preoccupation with violence, Homicidal or suicidal ideation, and obsessions: Judgment: Poor Insight: Poor Oriented to: Time, place and person. Recent and Remote Memory: Immediate, short-term and long-term memory is intact. Attention Span and Concentration: Limited. Language: Normal. Fund of knowledge: Adequate, Intact, Poor, Fair, Good. Mood: "I'm okay, I feel better now that I'm back on the Adderall." Appears anxious Affect: Mild constriction, brightens frequently, tearful 1 when informed may not be able to get into rehabilitation while taking Adderall. Generally congruent with mood. DIAGNOSES: Major depressive disorder, recurrent, moderate. Rule out substance- induced mood disorder, Polysubstance use disorder, ADHD by history ASSESSMENT: Patient appears to be adjusting to unit well, has been visible in attending groups and spends time in room attending groups. Patient is engaging with staff and peers appropriately. Patient indicates Seroquel is helping to improve sleep and she denies nightmares. Patient indicates current withdrawal protocol is effective and she denies discomfort. Patient denies suicidal and homicidal ideation, and denies urge to engage in self-injurious behavior, indicates her plan is to discharge to [facility], states she is aware there is a bed available for her at the end of this week. Patient was informed by song writer rehabilitation facility may not accept her while taking Adderall, this is upsetting to patient. Patient indicates she will stop the medication if needed to get into rehabilitation, adds she feels she will not progress as well in rehabilitation without Adderall due to challenges with concentration and focus. Patient informs song writer she has been taking Adderall 30 mg twice a day "for years" in effort to treat symptoms of ADHD with which she states she was diagnosed at approximately age 6. Will continue patient's current regimen of medications and we'll monitor for side effects. MANAGEMENT PLAN: Continue taper of Methadone and Librium, continue Adderall at 30mg po BID for ADHD symptoms until able to determine if rehabilitation will except on medication. Continue Seroquel 100mg po qhs for anxiety/insomnia. Continue to attempt to determine if [facility] will except patient on Adderall Maintain safety precautions Patient to attend groups and participate in unit programming to develop coping strategies Engage patient in discharge planning process and arrange facility transfer and/ or meeting with support system to ensure safe discharge planning when appropriate Patient to follow up with PCM upon discharge. TIME SPENT: 35 minutes Vital Signs Vital Signs Date Time Temp Pulse Resp B/P Pulse Ox O2 Delivery O2 Flow Rate FiO2 07/29/16 12:22 97.0 90 18 98/58 07/26/16 21:35 100 Room Air Current Medications Current Medications Acetaminophen (Tylenol) 650 mg Q6HP PRN PO HEADACHE or DISCOMFORT Last administered on 07/28/16 14:38; Start 07/26/16 at 20:30; Stop 08/25/16 at 20:29 Al Hydrox/Mg Hydrox/Simethicone (Mylanta) 30 ml Q4HP PRN PO HEARTBURN/ INDIGESTION; Start 07/26/16 at 20:30; Stop 08/25/16 at 20:29 Amphetamine/ Dextroamphetamine (Adderall) 30 mg BID@09,14 PO Last administered on 07/29/16 14:08; Start 07/29/16 at 09:00; Stop 08/05/16 at 08:59 Benzocaine (Anbesol Gel) APPLY TO IRRITATIONS IN MOUTH Q3HP PRN TOP PAIN; Start 07/28/16 at 23:45; Stop 08/27/16 at 23:44 Chlordiazepoxide (Librium) 25 mg TID PO Last administered on 07/29/16 15:58; Start 07/26/16 at 21:00; Stop 08/02/16 at 20:59 Folic Acid (Folic Acid) 1 mg DAILY PO ; Start 07/27/16 at 09:00; Stop 08/26/16 at 08:59 Home Med (Med Rec Complete!) ASDIRECTED XX ; Start 07/26/16 at 21:15; Stop at 21:35; Status DC Ibuprofen (Motrin, Advil) 600 mg Q6H PO Last administered on 07/29/16 17:54; Start 07/28/16 at 18:00; Stop 08/27/16 at 17:59 Magnesium Hydroxide (Milk Of Magnesia) 30 ml DAILYPRN PRN PO CONSTIPATION; Start 07/26/16 at 20:30; Stop 08/25/16 at 20:29 Methadone HCl (Dolophine) 10 mg QAM PO Last administered on 07/29/16 08:08; Start 07/28/16 at 09:00; Stop 08/04/16 at 08:59 Methadone HCl (Dolophine) 10 mg QHS PO ; Start 07/29/16 at 21:00; Stop 08/05/16 at 20:59 Methadone HCl (Dolophine) 20 mg BID PO Last administered on 07/27/16 08:09; Start 07/26/16 at 21:00; Stop 07/27/16 at 09:54; Status DC Methadone HCl (Dolophine) 20 mg QHS PO Last administered on 07/28/16 20:10; Start 07/27/16 at 21:00; Stop 07/29/16 at 18:40; Status DC Multivitamins (Theragram-M) 1 tab DAILY PO ; Start 07/27/16 at 09:00; Stop 08/26 at 08:59 Nicotine (Nicoderm Cq 21mg) 1 patch DAILY TD Last administered on 07/29/16 08: 09; Start 07/27/16 at 09:00; Stop 08/26/16 at 08:59 Ondansetron HCl (Zofran) 4 mg Q6HP PRN PO NAUSEA OR VOMITING Last administered on 07/28/16 08:05; Start 07/26/16 at 20:30; Stop 08/25/16 at 20:29 Quetiapine Fumarate (SEROquel) 100 mg QHS PO ; Start 07/28/16 at 21:00; Stop at 20:59 Thiamine HCl (Thiamine HCl) 100 mg DAILY PO ; Start 07/27/16 at 09:00; Stop at 08:59 Trazodone HCl (Desyrel) 100 mg QHSP PRN PO INSOMNIA Last administered on 22:55; Start 07/26/16 at 20:30; Stop 08/25/16 at 20:29 Allergies Coded Allergies: Haloperidol (Unverified Allergy, Unknown, 07/26/16) Laly Rendon Jul 29, 2016 18:50 17at 22:55; Start 07/26/16 at 20:30; Stop 08/25/16 at 20:29 Allergies Coded Allergies: Haloperidol (Unverified Allergy, Unknown, 07/26/16) Laly Rendon Jul 29, 2016 18:50
[2016-07-29] MEDS ORDERED: METHADONE 10 MG TAB (S0109) PO SCH (21:00)
[2016-07-29] MEDS: traZODone 50 MG TAB PO PRN (23:07)
[2016-07-29] MEDS: QUEtiapine FUMARATE 100 MG TAB PO SCH (23:07)
[2016-07-30] MEDS: IBUPROFEN 600 MG TAB PO SCH ×3 (06:14→17:25)
[2016-07-30 06:28] VITALS: BP 113/76
[2016-07-30] MEDS: THIAMINE 100 MG TAB PO SCH (09:00)
[2016-07-30] MEDS: FOLIC ACID 1 MG TAB PO SCH (09:00)
[2016-07-30] MEDS: MULTIVITAMINS/MINERALS THERAP 1 TAB PO SCH (09:00)
[2016-07-30] MEDS: chlordiazePOXIDE 25 MG CAP PO SCH ×2 (09:35→20:23)
[2016-07-30] MEDS: NICOTINE 21MG/24HR 1 EA TRANSDERMAL TD SCH (09:35)
[2016-07-30] MEDS: METHADONE 10 MG TAB (S0109) PO SCH (09:35)
[2016-07-30] MEDS: ADDERALL 5 MG TAB PO SCH ×2 (09:35→14:30)
[2016-07-30 12:27] VITALS: BP 119/75
[2016-07-30 13:14] LABS: CONTROL LINE HCG INT CTR LINE PRESENT
--- NOTE | 2016-07-30 16:43 | IPNPDOC ---
[facility] Progress Note Progress Note DATE OF SERVICE: 07/30/16 HISTORY: Muck Miner met with patient today on inpatient unit to assess treatment progress. Patient is aware she has bed available to her for rehabilitation on Thursday, is motivated in coordinating completion of methadone and Librium taper prior to discharge from inpatient treatment. Patient reports current anxiety level 5/10, denies symptoms of depression, denies suicidal and homicidal ideation, denies audiovisual hallucinations, and denies urge to engage in self- injurious behavior. Patient feels her anxiety is related to "just everything being up in the air and getting ready to go to rehabilitation." Patient indicates sleep remains improved with Seroquel, feels withdrawal protocol is effective, denies medication side effects. Muck Miner spoke with patient today regarding potential need for medication addition to address symptoms of anxiety and depression, patient declined new med trial stating, "I've tried tons of antidepressants and they all made me suicidal so I'm not interested." When asked why patient was not taking withdrawal protocol supplements patient stated , "I don't like to take them, they don't agree with me, they've upset stomach in the past." Patient was informed that, per [facility] facility, patient will be accepted to the program taking Adderall 30 mg at 0900 and 1400, but will be evaluated at rehabilitation to determine if ongoing treatment with stimulant is appropriate. Patient indicated she feels strongly she needs stimulant to be able to effectively participate in rehabilitation, however, verbalized understanding that medication may be discontinued on arrival. Patient remains interested and seems invested in bed but transfer to rehabilitation facility. Patient indicates sleep and appetite are good, denies challenges with concentration and focus when taking Adderall, denies problems with energy level. Addendum: Due to not finding med reconciliation in chart and not being able to locate patient's prescribing history in [employer], underwriter made call to [facility] in [place] on 07/29/16 and spoke to pharmacist who verified that patient has been prescribed Adderall 30 mg twice a day by Jw Young at the [facility]. VITAL SIGNS: Please see below. NEW TEST RESULTS: EKG dated 07/28/16 on admission SINUS RHYTHM NO PRIOR TRACING IN THE SYSTEM. Hard copy labs received from referring hospital were reviewed indicating low carbon dioxide, Hgb, HCT, MCV, MCH, lymphocytes, monocytes, carbon dioxide, creatinine, glucose (72), AST, total protein, and albumin. Elevated RDW, neutrophils, basophils, chloride, and anion gap. UDS on admission to [facility] was positive for opiates and cocaine and ethanol. PA asked to evaluate labs. HCG negative on 07/30/16. CURRENT MEDICATIONS: See below. MENTAL STATUS EXAMINATION: Patient is a 30-year old female, who is pleasant, cooperative, less disheveled today, has showered, has straightened room, is dressed in personal clothing, appears stated age, makes good eye contact. Speech: Is of regular rate, rhythm, volume, coherent Thought processes: Clear, goal-directed, remains somewhat fixated on Adderall Rate of thoughts: Within normal limits. Thought content: Rational, logical. Abstract reasoning: Appears within normal limits. Description of associations: Intact. Description of abnormal or psychotic thoughts: Denies hallucinations, Delusions , Preoccupation with violence, Homicidal or suicidal ideation, and obsessions: Judgment: Poor, expresses some improvement Insight: Poor, some improvement Oriented to: Time, place and person. Recent and Remote Memory: Immediate, short-term and long-term memory is intact. Attention Span and Concentration: Limited. Language: Normal. Fund of knowledge: Adequate. Mood: "I'm all right, worried about rehabilitation but I really want to go." Appears anxious but less than yesterday Affect: Mild constriction, brightens frequently, no tearfulness today, congruent with mood. DIAGNOSES: Major depressive disorder, recurrent, moderate. rule out Bipolar Disorder, rule out substance-induced mood disorder, polysubstance use disorder, ADHD by history ASSESSMENT: Patient continues to adjust well to unit, has been visible and attending groups, is engaging appropriately with staff and peers. Patient indicates current withdrawal protocol remains effective and she denies discomfort. Patient denies suicidal and homicidal ideation, and denies urge to engage in self-injurious behavior, is able to verbalize awareness of how to access supportive services on unit if needed. Patient indicates her plan is to discharge to [facility], states she is aware there is a bed available for her on Thursday. Patient is aware she may go to rehabilitation on Adderall but that it may be stopped, patient excepts information calmly and states she will stop the medication if needed to remain in rehab. Will continue patient's current regimen, will continue methadone and librium taper, and will monitor for side effects. MANAGEMENT PLAN: Continue taper of Methadone and Librium, continue Adderall at 30mg po BID for ADHD symptoms. Continue Seroquel 100 mg po qhs for anxiety/ insomnia. Maintain safety precautions Patient to attend groups and participate in unit programming to develop coping strategies Engage patient in discharge planning process and arrange facility transfer to [facility], transfer date set for Thursday morning Patient to follow up with [facility] PCP upon discharge. Vital Signs Vital Signs Date Time Temp Pulse Resp B/P Pulse Ox O2 Delivery O2 Flow Rate FiO2 07/30/16 12:27 97.9 94 18 119/75 07/26/16 21:35 100 Room Air Laboratory Data 24H Labs Laboratory Tests 2 07/30/16 12:42: Human Chorionic Gonadotropin, Qual NEGATIVE Current Medications Current Medications Acetaminophen (Tylenol) 650 mg Q6HP PRN PO HEADACHE or DISCOMFORT Last administered on 07/28/16 14:38; Start 07/26/16 at 20:30; Stop 08/25/16 at 20:29 Al Hydrox/Mg Hydrox/Simethicone (Mylanta) 30 ml Q4HP PRN PO HEARTBURN/ INDIGESTION; Start 07/26/16 at 20:30; Stop 08/25/16 at 20:29 Amphetamine/ Dextroamphetamine (Adderall) 30 mg BID@09,14 PO Last administered on 07/30/16 14:30; Start 07/29/16 at 09:00; Stop 08/05/16 at 08:59 Benzocaine (Anbesol Gel) APPLY TO IRRITATIONS IN MOUTH Q3HP PRN TOP PAIN; Start 07/28/16 at 23:45; Stop 08/27/16 at 23:44 Chlordiazepoxide (Librium) 25 mg BID PO Last administered on 07/30/16 09:35; Start 07/29/16 at 21:00; Stop 08/05/16 at 20:59 Chlordiazepoxide (Librium) 25 mg TID PO Last administered on 07/29/16 15:58; Start 07/26/16 at 21:00; Stop 07/29/16 at 18:54; Status DC Folic Acid (Folic Acid) 1 mg DAILY PO ; Start 07/27/16 at 09:00; Stop 08/26/16 at 08:59 Home Med (Med Rec Complete!) ASDIRECTED XX ; Start 07/26/16 at 21:15; Stop at 21:35; Status DC Ibuprofen (Motrin, Advil) 600 mg Q6H PO Last administered on 07/30/16 11:53; Start 07/28/16 at 18:00; Stop 08/27/16 at 17:59 Magnesium Hydroxide (Milk Of Magnesia) 30 ml DAILYPRN PRN PO CONSTIPATION; Start 07/26/16 at 20:30; Stop 08/25/16 at 20:29 Methadone HCl (Dolophine) 10 mg QAM PO Last administered on 07/30/16 09:35; Start 07/28/16 at 09:00; Stop 08/04/16 at 08:59 Methadone HCl (Dolophine) 10 mg QHS PO Last administered on 07/29/16 20:35; Start 07/29/16 at 21:00; Stop 08/05/16 at 20:59 Methadone HCl (Dolophine) 20 mg BID PO Last administered on 07/27/16 08:09; Start 07/26/16 at 21:00; Stop 07/27/16 at 09:54; Status DC Methadone HCl (Dolophine) 20 mg QHS PO Last administered on 07/28/16 20:10; Start 07/27/16 at 21:00; Stop 07/29/16 at 18:40; Status DC Multivitamins (Theragram-M) 1 tab DAILY PO ; Start 07/27/16 at 09:00; Stop 08/26 at 08:59 Nicotine (Nicoderm Cq 21mg) 1 patch DAILY TD Last administered on 07/30/16 09: 35; Start 07/27/16 at 09:00; Stop 08/26/16 at 08:59 Ondansetron HCl (Zofran) 4 mg Q6HP PRN PO NAUSEA OR VOMITING Last administered on 07/28/16 08:05; Start 07/26/16 at 20:30; Stop 08/25/16 at 20:29 Quetiapine Fumarate (SEROquel) 100 mg QHS PO Last administered on 07/29/16 23: 07; Start 07/28/16 at 21:00; Stop 08/27/16 at 20:59 Thiamine HCl (Thiamine HCl) 100 mg DAILY PO ; Start 07/27/16 at 09:00; Stop at 08:59 Trazodone HCl (Desyrel) 100 mg QHSP PRN PO INSOMNIA Last administered on t 23:07; Start 07/26/16 at 20:30; Stop 08/25/16 at 20:29 Allergies Coded Allergies: Haloperidol (Unverified Allergy, Unknown, 07/26/16) Laly Rendon Jul 30, 2016 16:43
[2016-07-30 18:23] VITALS: BP 123/69
[2016-07-30] MEDS: ACETAMINOPHEN TAB 650MG DOSE (2X325MG) PO PRN (19:10)
[2016-07-30] MEDS: ANBESOL GEL 10% TOP PRN (19:11)
[2016-07-30 21:00] VITALS: BP 122/72
[2016-07-30] MEDS ORDERED: METHADONE 10 MG TAB (S0109) PO SCH (21:00)
[2016-07-30] MEDS: QUEtiapine FUMARATE 100 MG TAB PO SCH (21:27)
[2016-07-30] MEDS: traZODone 50 MG TAB PO PRN (21:27)
[2016-07-31] MEDS: IBUPROFEN 600 MG TAB PO SCH ×5 (00:01→17:37)
[2016-07-31 06:50] VITALS: BP 104/61
[2016-07-31] MEDS: MULTIVITAMINS/MINERALS THERAP 1 TAB PO SCH (09:00)
[2016-07-31] MEDS: THIAMINE 100 MG TAB PO SCH (09:00)
[2016-07-31] MEDS: FOLIC ACID 1 MG TAB PO SCH (09:00)
[2016-07-31] MEDS ORDERED: chlordiazePOXIDE 25 MG CAP PO SCH (09:00)
[2016-07-31] MEDS: NICOTINE 21MG/24HR 1 EA TRANSDERMAL TD SCH (09:31)
[2016-07-31] MEDS: ADDERALL 5 MG TAB PO SCH ×2 (09:31→13:10)
[2016-07-31] MEDS: METHADONE 10 MG TAB (S0109) PO SCH (09:32)
[2016-07-31] MEDS ORDERED: NICO21PAT TD (11:56)
--- NOTE | 2016-07-31 15:37 | IPNPDOC ---
[facility] Progress Note Progress Note DATE: 07/31/16 HISTORY: Automotive Artist met with patient today on inpatient unit to assess treatment progress. Patient is aware she will be going to rehab tomorrow morning, remains in agreement with discharge plan. Patient remains motivated for completion of methadone and Librium taper. Patient denies symptoms of depression, reports low- grade anxiety related to discharge tomorrow in going to rehabilitation, denies audiovisual hallucinations, denies suicidal and homicidal ideation, denies urge to engage in self-injurious behavior. Patient indicates sleep remains improved with Seroquel, feels withdrawal protocol is effective, denies medication side effects. Patient also verbalizes understanding that she is being admitted to enter rehabilitation on Adderall, but that after assessment medication may be continued. Patient reiterates today she feels strongly she needs stimulant to be able to effectively participate in rehabilitation. Patient remains interested and seems invested in discharge to rehabilitation facility. Patient indicates sleep remains good with Trazodone, adds appetite is good, denies challenges with concentration and focus when taking Adderall, and denies problems with energy level. Addendum: Due to not finding med reconciliation in chart and not being able to locate patient's prescribing history in [employer], engineering writer made call to [facility] in [place] on 07/29/16 and spoke to pharmacist who verified that patient has been prescribed Adderall 30 mg twice a day by Jw Young at the [facility]. VITAL SIGNS: Please see below. NEW TEST RESULTS: EKG dated 07/28/16 on admission SINUS RHYTHM NO PRIOR TRACING IN THE SYSTEM. Hard copy labs received from referring hospital were reviewed indicating low carbon dioxide, Hgb, HCT, MCV, MCH, lymphocytes, monocytes, carbon dioxide, creatinine, glucose (72), AST, total protein, and albumin. Elevated RDW, neutrophils, basophils, chloride, and anion gap. UDS on admission to [facility] was positive for opiates and cocaine and ethanol. PA asked to evaluate labs. HCG negative on 07/30/16. CURRENT MEDICATIONS: See below. MENTAL STATUS EXAMINATION: Patient is a 30-year old female, who is pleasant, cooperative, less disheveled today, has showered, has straightened room, is dressed in personal clothing, appears stated age, makes good eye contact. Speech: Is of regular rate, rhythm, volume, coherent Thought processes: Clear, goal-directed, remains somewhat fixated on Adderall Rate of thoughts: Within normal limits. Thought content: Rational, logical. Abstract reasoning: Appears within normal limits. Description of associations: Intact. Description of abnormal or psychotic thoughts: Denies hallucinations, Delusions , Preoccupation with violence, Homicidal or suicidal ideation, and obsessions: Judgment: Limited but continues to improve Insight: Improved Oriented to: Time, place and person. Recent and Remote Memory: Immediate, short-term and long-term memory is intact. Attention Span and Concentration: Limited. Language: Normal. Fund of knowledge: Adequate. Mood: "I'm okay, feeling pretty ready for rehabilitation I really hope works as time." No mood lability noted Affect: Full range, brightens frequently, no tearfulness today, congruent with mood. DIAGNOSES: Major depressive disorder, recurrent, severe, polysubstance use disorder, rule out Bipolar Disorder, rule out substance-induced mood disorder. ADHD by history ASSESSMENT: Patient continues to adjust well to unit, has been visible and attending groups, is engaging appropriately with staff and peers. Patient indicates current withdrawal protocol remains effective and she denies discomfort. Patient denies suicidal and homicidal ideation, and denies urge to engage in self-injurious behavior, is able to verbalize awareness of how to access supportive services on unit if needed. Patient indicates her plan remains to discharge to [facility] tomorrow morning. Will continue patient's current regimen, will continue methadone and librium taper, and will monitor for side effects. MANAGEMENT PLAN: Continue taper of Methadone and Librium. Continue Adderall at 30mg po BID for ADHD symptoms, Seroquel 100 mg po qhs for anxiety/insomnia, and Trazodone 100 mg po hs PRN insomnia. Maintain safety precautions Patient to attend groups and participate in unit programming to develop coping strategies Engage patient in discharge planning process and arrange facility transfer [place] [facility] tomorrow morning Patient to follow up with [facility] [place] upon discharge. TIME SPENT: 35 minutes. Vital Signs Vital Signs Date Time Temp Pulse Resp B/P Pulse Ox O2 Delivery O2 Flow Rate FiO2 07/31/16 09:32 16 07/31/16 06:50 95.5 83 104/61 07/26/16 21:35 100 Room Air Current Medications Current Medications Acetaminophen (Tylenol) 650 mg Q6HP PRN PO HEADACHE or DISCOMFORT Last administered on 07/30/16 19:10; Start 07/26/16 at 20:30; Stop 08/25/16 at 20:29 Al Hydrox/Mg Hydrox/Simethicone (Mylanta) 30 ml Q4HP PRN PO HEARTBURN/ INDIGESTION; Start 07/26/16 at 20:30; Stop 08/25/16 at 20:29 Amphetamine/ Dextroamphetamine (Adderall) 30 mg BID@,14 PO Last administered on 07/31/16 13:10; Start 07/29/16 at 09:00; Stop 08/05/16 at 08:59 Benzocaine (Anbesol Gel) APPLY TO IRRITATIONS IN MOUTH Q3HP PRN TOP PAIN Last administered on 07/30/16 19:11; Start 07/28/16 at 23:45; Stop 08/27/16 at 23:44 Chlordiazepoxide (Librium) 25 mg BID PO Last administered on 07/30/16 20:23; Start 07/29/16 at 21:00; Stop 07/30/16 at 21:00; Status DC Chlordiazepoxide (Librium) 25 mg DAILY PO Last administered on 07/31/16 09:31 ; Start 07/31/16 at 09:00; Stop 07/31/16 at 11:00; Status DC Chlordiazepoxide (Librium) 25 mg TID PO Last administered on 07/29/16 15:58; Start 07/26/16 at 21:00; Stop 07/29/16 at 18:54; Status DC Folic Acid (Folic Acid) 1 mg DAILY PO ; Start 07/27/16 at 09:00; Stop 08/26/16 at 08:59 Home Med (Med Rec Complete!) ASDIRECTED XX ; Start 07/26/16 at 21:15; Stop at 21:35; Status DC Ibuprofen (Motrin, Advil) 600 mg Q6H PO Last administered on 07/31/16 13:10; Start 07/28/16 at 18:00; Stop 08/27/16 at 17:59 Magnesium Hydroxide (Milk Of Magnesia) 30 ml DAILYPRN PRN PO CONSTIPATION; Start 07/26/16 at 20:30; Stop 08/25/16 at 20:29 Methadone HCl (Dolophine) 10 mg QAM PO Last administered on 07/31/16 09:32; Start 07/28/16 at 09:00; Stop 08/04/16 at 08:59 Methadone HCl (Dolophine) 10 mg QHS PO Last administered on 07/29/16 20:35; Start 07/29/16 at 21:00; Stop 07/30/16 at 16:43; Status DC Methadone HCl (Dolophine) 10 mg QHS PO Last administered on 07/30/16 20:24; Start 07/30/16 at 21:00; Stop 07/30/16 at 23:00; Status DC Methadone HCl (Dolophine) 20 mg BID PO Last administered on 07/27/16 08:09; Start 07/26/16 at 21:00; Stop 07/27/16 at 09:54; Status DC Methadone HCl (Dolophine) 20 mg QHS PO Last administered on 07/28/16 20:10; Start 07/27/16 at 21:00; Stop 07/29/16 at 18:40; Status DC Multivitamins (Theragram-M) 1 tab DAILY PO ; Start 07/27/16 at 09:00; Stop 08/26 at 08:59 Nicotine (Nicoderm Cq 21mg) 1 patch DAILY TD Last administered on 07/31/16 09: 31; Start 07/27/16 at 09:00; Stop 08/26/16 at 08:59 Ondansetron HCl (Zofran) 4 mg Q6HP PRN PO NAUSEA OR VOMITING Last administered on 07/28/16 08:05; Start 07/26/16 at 20:30; Stop 08/25/16 at 20:29 Quetiapine Fumarate (SEROquel) 100 mg QHS PO Last administered on 07/30/16 21: 27; Start 07/28/16 at 21:00; Stop 08/27/16 at 20:59 Thiamine HCl (Thiamine HCl) 100 mg DAILY PO ; Start 07/27/16 at 09:00; Stop at 08:59 Trazodone HCl (Desyrel) 100 mg QHSP PRN PO INSOMNIA Last administered on 21:27; Start 07/26/16 at 20:30; Stop 08/25/16 at 20:29 Allergies Coded Allergies: Haloperidol (Unverified Allergy, Unknown, 07/26/16) Laly Rendon Jul 31, 2016 15:37 Al Hydrox/Mg Hydrox/Simethicone (Mylanta) 30 ml Q4HP PRN PO HEARTBURN/ INDIGESTION; Start 07/26/16 at 20:30; Stop 08/25/16 at 20:29 Amphetamine/ Dextroamphetamine (Adderall) 30 mg BID@09,14 PO Last administered on 07/31/16 13:10; Start 07/29/16 at 09:00; Stop 08/05/16 at 08:59 Benzocaine (Anbesol Gel) APPLY TO IRRITATIONS IN MOUTH Q3HP PRN TOP PAIN Last administered on 07/30/16 19:11; Start 07/28/16 at 23:45; Stop 08/27/16 at 23:44 Chlordiazepoxide (Librium) 25 mg BID PO Last administered on 07/30/16 20:23; Start 07/29/16 at 21:00; Stop 07/30/16 at 21:00; Status DC Chlordiazepoxide (Librium) 25 mg DAILY PO Last administered on 07/31/16 09:31 ; Start 07/31/16 at 09:00; Stop 07/31/16 at 11:00; Status DC Chlordiazepoxide (Librium) 25 mg TID PO Last administered on 07/29/16 15:58; Start 07/26/16 at 21:00; Stop 07/29/16 at 18:54; Status DC Folic Acid (Folic Acid) 1 mg DAILY PO ; Start 07/27/16 at 09:00; Stop 08/26/16 at 08:59 Home Med (Med Rec Complete!) ASDIRECTED XX ; Start 07/26/16 at 21:15; Stop at 21:35; Status DC Ibuprofen (Motrin, Advil) 600 mg Q6H PO Last administered on 07/31/16 13:10; Start 07/28/16 at 18:00; Stop 08/27/16 at 17:59 Magnesium Hydroxide (Milk Of Magnesia) 30 ml DAILYPRN PRN PO CONSTIPATION; Start 07/26/16 at 20:30; Stop 08/25/16 at 20:29 Methadone HCl (Dolophine) 10 mg QAM PO Last administered on 07/31/16 09:32; Start 07/28/16 at 09:00; Stop 08/04/16 at 08:59 Methadone HCl (Dolophine) 10 mg QHS PO Last administered on 07/29/16 20:35; Start 07/29/16 at 21:00; Stop 07/30/16 at 16:43; Status DC Methadone HCl (Dolophine) 10 mg QHS PO Last administered on 07/30/16 20:24; Start 07/30/16 at 21:00; Stop 07/30/16 at 23:00; Status DC Methadone HCl (Dolophine) 20 mg BID PO Last administered on 07/27/16 08:09; Start 07/26/16 at 21:00; Stop 07/27/16 at 09:54; Status DC Methadone HCl (Dolophine) 20 mg QHS PO Last administered on 07/28/16 20:10; Start 07/27/16 at 21:00; Stop 07/29/16 at 18:40; Status DC Multivitamins (Theragram-M) 1 tab DAILY PO ; Start 07/27/16 at 09:00; Stop 08/26 at 08:59 Nicotine (Nicoderm Cq 21mg) 1 patch DAILY TD Last administered on 07/31/16 09: 31; Start 07/27/16 at 09:00; Stop 08/26/16 at 08:59 Ondansetron HCl (Zofran) 4 mg Q6HP PRN PO NAUSEA OR VOMITING Last administered on 07/28/16 08:05; Start 07/26/16 at 20:30; Stop 08/25/16 at 20:29 Quetiapine Fumarate (SEROquel) 100 mg QHS PO Last administered on 07/30/16 21: 27; Start 07/28/16 at 21:00; Stop 08/27/16 at 20:59 Thiamine HCl (Thiamine HCl) 100 mg DAILY PO ; Start 07/27/16 at 09:00; Stop at 08:59 Trazodone HCl (Desyrel) 100 mg QHSP PRN PO INSOMNIA Last administered on t 21:27; Start 07/26/16 at 20:30; Stop 08/25/16 at 20:29 Allergies Coded Allergies: Haloperidol (Unverified Allergy, Unknown, 07/26/16) Laly Rendon Jul 31, 2016 15:37
[2016-07-31] MEDS: ANBESOL GEL 10% TOP PRN (17:36)
[2016-07-31 18:00] VITALS: BP 117/74
[2016-07-31] MEDS: traZODone 50 MG TAB PO PRN (22:18)
[2016-07-31] MEDS: QUEtiapine FUMARATE 100 MG TAB PO SCH (22:18)
[2016-08-01 06:00] VITALS: BP 111/64
[2016-08-01] MEDS: IBUPROFEN 600 MG TAB PO SCH ×2 (06:00)
[2016-08-01] MEDS ORDERED: TRAZ100T4 PO (07:58)
[2016-08-01] MEDS ORDERED: ADDE5TAB5 PO (07:58)
[2016-08-01] MEDS ORDERED: ANBEEL MT (07:58)
[2016-08-01] MEDS ORDERED: SERO1TAB PO (07:58)
[2016-08-01] MEDS: THIAMINE 100 MG TAB PO SCH (08:07)
[2016-08-01] MEDS: MULTIVITAMINS/MINERALS THERAP 1 TAB PO SCH (08:07)
[2016-08-01] MEDS: FOLIC ACID 1 MG TAB PO SCH (08:07)
[2016-08-01] MEDS: NICOTINE 21MG/24HR 1 EA TRANSDERMAL TD SCH (08:10)
[2016-08-01] MEDS: ADDERALL 5 MG TAB PO SCH (08:10)
[2016-08-01] MEDS ORDERED: ADVI200T PO (08:13)
[2016-08-01] MEDS: ACETAMINOPHEN TAB 650MG DOSE (2X325MG) PO PRN (08:36)
[2016-08-01] MEDS ORDERED: METHADONE 5 MG TAB (S0109) PO SCH (09:00)
--- NOTE | 2016-08-01 12:18 | DS.PDOC ---
[facility] Discharge Summary Discharge Summary DATE OF ADMISSION: Jul 26, 2016 at 21:20 DATE OF DISCHARGE: Aug 01, 2016 at 09:15 HISTORY: Patient is a 30-year-old female with history of depression, anxiety, panic disorder and opiate dependency admitted to our unit on a 939 legal status. According to the records, the patient was transferred from [facility] after she attempted suicide. It is reported that she has a long history of alcohol and heroin and stated that she was on Suboxone for a few years, but she could not afford the treatment and relapsed to use heroin and alcohol four months ago. Also, it is reported in the chart that she was supposed to be admitted to [facility]; but on the way to the rehabilitation the patient used alcohol and she was not accepted into treatment. The patient admitted she overdosed and cut her left forearm and its reported that she was tearful throughout the interview, was very anxious and depressed. She admits that she has been using heroin IV on a daily basis, which is the drug of choice, but also alcohol every other day; and for the last couple of months, crack cocaine. The patient reports that she has not been sharing needles and that she was tested for human immunodeficiency virus (HIV) and hepatitis C at the [facility] before admission to our unit. During the interview, the patient is somewhat medication seeking. She is very interested on all the medication she is on and what the plan is as far as the pharmacological treatment. She states that she has been diagnosed of attention deficit hyperactive disorder (ADHD) since 6 years of age, but she could not come up with a name of the psychiatrist that she has followed lately told her that we were going to pull the records and review her history and records. There is no evidence of psychotic symptoms, no auditory or visual hallucinations or delusions during the interview. The patient is anxious and somewhat labile. The patient reports intermittent suicidal thoughts, but is able to contract for safety in our unit. PAST PSYCHIATRIC HISTORY: The patient reports she was diagnosed of attention deficit hyperactive disorder (ADHD) when she was 6 years of age. Will need to review the records. The patient also reports being diagnosed of anxiety, panic attacks and agoraphobia. PAST MEDICAL HISTORY: The patient reports that she has been diagnosed of alcohol-related seizures. TEST RESULTS: EKG dated 07/28/16 on admission SINUS RHYTHM NO PRIOR TRACING IN THE SYSTEM. Hard copy labs received from referring hospital were reviewed indicating low carbon dioxide, Hgb, HCT, MCV, MCH, lymphocytes, monocytes, carbon dioxide, creatinine, glucose (72), AST, total protein, and albumin. Elevated RDW, neutrophils, basophils, chloride, and anion gap. UDS on admission to [facility] was positive for opiates, cocaine and ethanol. HCG negative on 07/30/16. FAMILY HISTORY: The patient reports her father had problems with drugs and alcohol and other psychiatric problems, but she is not sure about the specific diagnosis. SUBSTANCE ABUSE HISTORY: The patient reports that she was using pain killers before she got into the Suboxone program and is using heroin IV for the last four months. She also admits using alcohol every other day and crack cocaine for the last two months. LEGAL HISTORY: Patient denies TREATMENT AND PROGRESS ON THE UNIT: Patient has adjusted well to unit, has been attending groups and participating in unit programming, engaging appropriately with peers and staff patient has presented with no behavioral management challenges. At time of admission patient presented as fixated on medications, has consistently indicated that she cannot concentrate or focus without Adderall , which she states she has been taking since age 6 at which time she was diagnosed with ADHD. Patient has been informed that she is being permitted by [facility] treatment facility to enter program while taking Adderall, however, will be evaluated by treatment facility staff to determine need for ongoing treatment with stimulant medication; patient verbalizes awareness and agreement. Patient has responded well to methadone and lithium withdrawal protocol, currently denies all symptoms of withdrawal and craving. Patient has also responded well to Seroquel 100 mg po q hs to address anxiety and mood, and trazodone 100 mg po hs PRN to address symptoms of insomnia. Patient denies medication side effects. Patient also denies suicidal and homicidal ideation, denies depression, reports low-grade anxiety related to discharging today to enter a substance abuse treatment facility, denies audiovisual hallucinations, denies urge to engage in self-injurious behavior. Patient states she feels hopeful and future oriented regarding substance abuse treatment and expresses goals related to her future after completing treatment. Patient is requesting discharge today to [facility] inpatient substance abuse treatment center, to which she will be transported by cab arranged by [facility], verbalizes understanding of and agreement with discharge plan. Of Note: Due to not finding med reconciliation in chart and not being able to locate patient's prescribing history in [employer], automobile service writer made call to [facility] in [place] on 07/29/16 and spoke to pharmacist who verified that patient has been prescribed Adderall 30 mg twice a day by Jw Young at the outpatient [facility]. MENTAL STATUS EXAMINATION ON DISCHARGE: Patient is a 30-year old female, who is pleasant, cooperative, less disheveled today, has showered, has straightened room, is dressed in personal clothing, appears stated age, makes good eye contact. Speech: Is of regular rate, rhythm, volume, coherent Thought processes: Clear, goal-directed, reduced fixation on medications today Rate of thoughts: Within normal limits. Thought content: Rational, logical. Abstract reasoning: Appears within normal limits. Description of associations: Intact. Description of abnormal or psychotic thoughts: Denies hallucinations, Delusions , Preoccupation with violence, Homicidal or suicidal ideation, and obsessions: Judgment: Limited but continues to improve Insight: Fair, has improved Oriented to: Time, place and person. Recent and Remote Memory: Immediate, short-term and long-term memory is intact. Attention Span and Concentration: Limited. Language: Normal. Fund of knowledge: Adequate. Mood: "I'm feeling pretty good, nervous about going to rehabilitation, but I know it's right for me this time." No mood lability noted Affect: Full range, brightens frequently, no tearfulness today, congruent with mood. CONDITION ON DISCHARGE: Stable, no suicidal or homicidal ideation DIAGNOSES ON DISCHARGE: Major depressive disorder, recurrent, severe, polysubstance use disorder, rule out Bipolar Disorder, rule out substance- induced mood disorder. ADHD by history MEDICATIONS ON DISCHARGE: See below PLAN/FOLLOWUP ARRANGEMENTS: Patient to discharge today to [facility] inpatient substance abuse rehabilitation Center, located in [place], [place], and to be provided with transportation by [facility]. Patient to follow up with PCP at [facility] treatment facility within 5-7 days of discharge and to request follow-up dental care TIME SPENT: 25 minutes. Vital Signs Vital Sign - Last 24 Hours 07/31/16 08/01/16 08/01/16 18:00 06:00 08:11 Temp 98.1 96.4 Pulse 98 72 Resp 16 18 16 B/P 117/74 111/64 Medications Scheduled Amphetamine/Dextroamphetamine (Adderall 5 mg) 1 Tab Tab 30 MG PO BID @0900 + 1400 ADHD (Reported) Nicotine (Nicotine Transdermal Syst) 21 Mg/24 Hr Dis #14 1 PATCH TD DAILY SMOKING CESSATION Quetiapine Fumerate (Seroquel) 100 Mg Tab 100 MG PO QHS MOOD (Reported) Scheduled PRN Benzocaine (Anbesol) 1 Dose/9 Gm Gel 1 DOSE MT Q3HP PRN PRN PAIN OR DISCOMFORT ( Reported) Ibuprofen (Advil) 200 Mg Tab 600 MG PO Q6HP PRN PRN PAIN (Reported) Trazodone HCl (Trazodone HCl) 100 Mg Tab 100 MG PO QHSP PRN PRN INSOMNIA ( Reported) Allergies Coded Allergies: Haloperidol (Unverified Allergy, Unknown, 07/26/16) Laly Rednon Aug 01, 2016 12:18
== END 2016-08-01 09:15 | DRG 751 ==
LOC: M ED 19:05 → M PSY 21:20
PROVIDERS: ADMIT Psychiatry & Neurology Psychiatry; ATTEND Psychiatry & Neurology Psychiatry
DX: F33.2 Major depressive disorder, recurrent severe without psychotic features (principal); F11.10 Opioid abuse, uncomplicated; F19.94 Other psychoactive substance use, unspecified with psychoactive substance-induced mood disorder; F90.9 Attention-deficit hyperactivity disorder, unspecified type; F17.210 Nicotine dependence, cigarettes, uncomplicated; F10.10 Alcohol abuse, uncomplicated; F14.10 Cocaine abuse, uncomplicated; Z79.899 Other long term (current) drug therapy